=== PATIENT | female | born 1955 | race Caucasian/White ===

== ENCOUNTER → 2017-05-11 | Outpatient (CLI) | payer OTHER ==
[~2017-05-11] MED LIST: ALPR0.5T PO; CITA20TA9 PO; IBUP600T44 PO
[2017-05-11 10:27] LABS: BASO % 0.3 %; BASO ABS # 0.03 K/uL (0-0.2); COMPLETE YES; EOS % 1.7 %; HEMATOCRIT 49.1 % (37-47); IG% 0.3 %; LYMPH ABS # 1.97 K/uL (1.2-3.4); MEAN CELL VOLUME 89.1 fL (80-100); MEAN CORPUSCULAR HEMOGLOBIN 29.9 pg (25-34); MEAN CORPUSCULAR HGB CONC 33.6 g/dl (32-36); MEAN PLATELET VOLUME 10.3 fL (7.4-10.4); MONO % 6.3 %; NEUT % 72.4 %; PLATELET COUNT 282 K/uL (130-400); RED BLOOD COUNT 5.51 M/uL (4.2-5.4); WHITE BLOOD COUNT 10.38 K/uL (4.8-10.8)
[2017-05-11 10:41] LABS: ALT/SGPT 21 U/L (12-78); AST/SGOT 11 U/L (15-37); BLOOD UREA NITROGEN 18 mg/dl (7-18); BUN/CREATININE RATIO 21.6 (10-20); CALCIUM 8.6 mg/dl (8.5-10.1); CARBON DIOXIDE 29 mmol/L (21-32); CHLORIDE 105 mmol/L (98-107); CHOLESTEROL 213 mg/dl (0-200); CREATININE 0.82 mg/dl (0.60-1.20); GLUCOSE 115 mg/dl (70-99); POTASSIUM 3.9 mmol/L (3.5-5.1); SODIUM 139 mmol/L (136-145); TRIGLYCERIDES 108 mg/dl (0-150); VERY LOW DENSITY LIPOPROT CALC 22 mg/dl
[2017-05-11 10:51] LABS: ALB/GLOB RATIO 1.1 (0.9-2); ALKALINE PHOSPHATASE 89 U/L (45-117); CHOLESTEROL/HDL RATIO 4.3; HDL CHOLESTEROL 50 mg/dl; LDL CHOLESTEROL CALCULATED 141 mg/dl; THYROID STIMULATING HORMONE 0.869 uIu/ml (0.300-4.500)
[2017-05-11 11:30] LABS: ESTIMATED AVERAGE GLUCOSE 134 mg/dl; HA1C FLAG Normal (Normal)
== END | disposition home or self-care (01) ==
LOC: C.LAB1850 09:02
PROVIDERS: ATTEND Nurse Practitioner Adult Health
DX: Z00.00 Encounter for general adult medical examination without abnormal findings (principal); Z13.1 Encounter for screening for diabetes mellitus; E78.00 Pure hypercholesterolemia, unspecified

== ENCOUNTER → 2017-06-26 | Outpatient (CLI) | payer OTHER ==
--- NOTE | 2017-06-26 12:49 | DIAGNOSTIC IMAGING REPORT ---
CT LUNG SCREENING, LOW DOSE WITH COMPUTER-AIDED DETECTION (CAD) CLINICAL HISTORY: Smoking history. Lung cancer screening. COMPARISON STUDY: Chest CT dated 08/07/2012. CT DOSE: 74.81 mGycm TECHNIQUE: Low-dose helical CT was acquired without intravenous contrast from lung apices to bases and reconstructed at 2.5 mm every 2 mm. CAD was utilized for this study. A dose lowering technique was utilized adhering to the principles of ALARA. FINDINGS: Thyroid: Imaged portions of the thyroid gland are normal in appearance. Thoracic aorta: There is mild atherosclerotic calcification of the thoracic aorta, which is normal in caliber and demonstrates standard 3 vessel arch anatomy. Heart: The heart is enlarged and without pericardial effusion. There are coronary artery calcifications. Lungs and pleural spaces: Mild emphysematous change is identified. There are numerous calcified granulomas. No airspace consolidation is seen typical for pneumonia and there is no pleural effusion. Linear atelectasis versus scarring is present in the left lower lobe. The trachea and central airways are clear. Mediastinum: There is no mediastinal lymphadenopathy. [place]: Not well assessed without IV contrast. Axilla: Clear. Upper abdomen: There is a small hiatal hernia. Partially visualized upper abdominal viscera is otherwise grossly within normal limits but not well assessed. Skeletal structures: The skeletal structures are osteopenic. There are no lytic or blastic osseous lesions. IMPRESSION: 1. Cardiomegaly and mild emphysema. 2. No airspace consolidation or pleural effusion is identified. 3. No concerning pulmonary lesion is seen. CAD FINDINGS: Overall Lung RADS Category: 1 Lung RADS Management Recommendation: Lung-RADS 1: Continue annual screening in 12 months. Lung RADS Follow Up Date: 2018-06-26 Lung RADS Nodule ID: Electronically signed by: Emeterio Rosen M.D. 06/26/2017 12:48 PM Dictated Date/Time: 06/26/2017 12:40 PM
== END | disposition home or self-care (01) ==
LOC: C.CTS 12:20
PROVIDERS: ATTEND Nurse Practitioner Adult Health
DX: Z87.891 Personal history of nicotine dependence (principal); I51.7 Cardiomegaly

== ENCOUNTER → 2017-09-12 | Outpatient (CLI) | payer OTHER ==
[2017-09-12 17:38] LABS: ALT/SGPT 24 U/L (12-78); AST/SGOT 15 U/L (15-37)
== END | disposition home or self-care (01) ==
LOC: C.LAB1850 16:18
PROVIDERS: ATTEND Nurse Practitioner Adult Health
DX: E78.5 Hyperlipidemia, unspecified (principal)

== ENCOUNTER → 2018-01-15 | Day surgery (SDC) | payer OTHER ==
[2018-01-08 09:23] VITALS: BMI 47.0
[~2018-01-15] VITALS: Ht 154.9 cm; Wt 122.7 kg
[~2018-01-15] MED LIST changes: +ATOR-22 PO; +GLC/500 PO; -IBUP600T44 PO; +LIDOCAINE HCL 2% 2 ML VIAL (20MG/ML) ONE; +PROPOFOL IV EMULSION 10 MG/ML 20 ML VIAL IV ONE; +SODIUM CHLORIDE 0.9% 500ML 500 ML IV ONE; +[UNRECOGNIZED DRUG - OTHER] PO; +[UNRECOGNIZED DRUG - OTHER] PO
[2018-01-15 10:32] VITALS: Ht 154.9 cm; Wt 122.7 kg
--- NOTE | 2018-01-15 11:35 | Endo History and Physical ---
History & Physical Date of Service: Jan 15, 2018. Chief Complaint: SCREENING Referring Physician: DR. HURTADO History of Present Illness 62 yo CF who presents for screening colonoscopy. Past Surgical History Hx Cardiac Surgery: No Hx Internal Defibrillator: No Hx Pacemaker: No Hx Abdominal Surgery: Yes (JESSICA BSO) Hx of Implantable Prosthesis: No Hx Post-Op Nausea and Vomiting: Yes Hx Cancer Surgery: No Hx Thoracic Surgery: Yes (BREAST REDUCTION) Hx Orthopedic: No Hx Urinary Tract Surgery: No Family History Esophogeal [place] Social History Smoking Status: Former Smoker Hx Substance Use: No Hx Alcohol Use: Yes (RARELY) Allergies Coded Allergies: Sulfites (Unverified Allergy, Unknown, SULFITES FROM ALCHOLOL>ITCHING/RED/ FLUSHED IN FACE, 01/15/18) Uncoded Allergies: CAT/DOG DANDER (Allergy, Unknown, ITCHING EYES, 01/08/18) Current Medications Reported Home Medications Medications Dose Route/Sig Max Daily Dose Days Date Category Dose Instructions [Advance Proprietary] 1 Dose PO QAM 01/08/18 Reported [[place] Cleanse] 1 Dose PO DIRECTED 01/08/[address] BARNES (DIETARY SUPPLEMENT) Glucophage (Metformin Hcl) 500 Mg Tab 500 Mg PO HS 01/08/18 Reported Lipitor (Atorvastatin Calcium) 20 Mg Tab 20 Mg PO QAM 01/08/18 Reported Celexa (Citalopram Hydrobromide) 20 Mg Tab 20 Mg PO QAM 01/08/18 Reported Xanax (Alprazolam) 0.5 Mg Tab 0.5 Mg PO DAILY PRN 02/17/12 Reported Vital Signs Weight (Kilograms): 122.73 Height (Feet): 5 Height (Inches): 1 Date Time Temp Pulse Resp B/P (MAP) Pulse Ox O2 Delivery O2 Flow Rate FiO2 01/15/18 10:44 36.8 86 20 134/96 (109) 95 Room Air Physical Exam General Appearance: WD/WN, no apparent distress Respiratory/Chest: Auscultation: breath sounds normal Cardiovascular: Heart Auscultation: RRR Abdomen: Bowel Sounds: normal Inspection & Palpation: soft, non-distended, no tenderness, guarding & rebound Assessment and Plan Assessment: 62 yo CF who presents for screening colonoscopy. Plan: Proceed with colonoscopy.
--- NOTE | 2018-01-15 12:09 | GI REPORT ---
Procedure Date: 01/15/2018 11:40 AM Procedure: Colonoscopy Indications: Screening for colorectal malignant neoplasm Medicines: Monitored Anesthesia Care Complications: No immediate complications. Estimated Blood Loss: Estimated blood loss: none. Procedure: Pre-Anesthesia Assessment: - Prior to the procedure, a History and Physical was performed, and patient medications and allergies were reviewed. The patient's tolerance of previous anesthesia was also reviewed. The risks and benefits of the procedure and the sedation options and risks were discussed with the patient. All questions were answered, and informed consent was obtained. Prior Anticoagulants: The patient has taken no previous anticoagulant or antiplatelet agents. ASA Grade Assessment: II - A patient with mild systemic disease. After reviewing the risks and benefits, the patient was deemed in satisfactory condition to undergo the procedure. After I obtained informed consent, the scope was passed under direct vision. Throughout the procedure, the patient's blood pressure, pulse, and oxygen saturations were monitored continuously. The scope was introduced through the anus and advanced to the cecum, identified by appendiceal orifice and ileocecal valve. The colonoscopy was performed without difficulty. The patient tolerated the procedure well. The quality of the bowel preparation was good. The ileocecal valve, appendiceal orifice, and rectum were photographed. Findings: The perianal and digital rectal examinations were normal. Two pedunculated and sessile polyps were found in the sigmoid colon (pedunculated) and hepatic flexure (sessile). The polyps were 5 to 13 mm in size. These polyps were removed with a hot snare. Resection and retrieval were complete. Multiple small-mouthed diverticula were found in the sigmoid colon. Non-bleeding internal hemorrhoids were found during retroflexion. The hemorrhoids were small. Impression: - Two 5 to 13 mm polyps in the sigmoid colon and at the hepatic flexure, removed with a hot snare. Resected and retrieved. - Diverticulosis in the sigmoid colon. - Non-bleeding internal hemorrhoids. Recommendation: - Resume previous diet. - Continue present medications. - Repeat colonoscopy for surveillance based on pathology results. - Return to primary care physician as previously scheduled. Allen Wright DO 01/15/2018 12:09:34 PM This report has been signed electronically. Note Initiated On: 01/15/2018 11:40 AM I attest to the content of the Intraoperative Record and orders documented therein, exceptions below
--- NOTE | 2018-01-15 12:10 | Discharge Instructions ---
Endoscopy Patient Instructions Date / Procedure(s) Performed Jan 15, 2018. Colonoscopy Allergy Information Coded Allergies: Sulfites (Unverified Allergy, Unknown, SULFITES FROM ALCHOLOL>ITCHING/RED/ FLUSHED IN FACE, 01/15/18) Uncoded Allergies: CAT/DOG DANDER (Allergy, Unknown, ITCHING EYES, 01/08/18) Discharge Date / Findings Jan 15, 2018. Colon polyps Diverticulosis Internal hemorrhoids Medication Instructions OK to resume all medications today as prescribed Reported Home Medications Medications Dose Route/Sig Max Daily Dose Days Date Category Dose Instructions [Advance Proprietary] 1 Dose PO QAM 01/08/18 Reported [[place] Cleanse] 1 Dose PO DIRECTED 01/08/[address] BARNES (DIETARY SUPPLEMENT) Glucophage (Metformin Hcl) 500 Mg Tab 500 Mg PO HS 01/08/18 Reported Lipitor (Atorvastatin Calcium) 20 Mg Tab 20 Mg PO QAM 01/08/18 Reported Celexa (Citalopram Hydrobromide) 20 Mg Tab 20 Mg PO QAM 01/08/18 Reported Xanax (Alprazolam) 0.5 Mg Tab 0.5 Mg PO DAILY PRN 02/17/12 Reported Provider Instructions Activity Restrictions - No exercising or heavy lifting for 24 hours. - Do not drink alcohol the day of the procedure. - Do not drive a car or operate machinery until the day after the procedure. - Do not make any important decisions or sign important papers in 24 hours after the procedure. Following Day: - Return to full activity which may include returning to work/school. Diet Start your diet with liquids and light foods (jello, soup, juice, toast). Then eat your usual diet if not nauseated. Treatment For Common After Affects For mild abdominal pain, bloating, or excessive gas: - Rest - Eat lightly - Lie on right side Follow-Up Information Follow-up with DR. HURTADO as scheduled Anesthesia Information What You Should Know You have had a procedure that required some medicine to reduce anxiety and discomfort. This treatment is called moderate sedation. After receiving the treatment, you may be sleepy, but you will be able to breathe on your own. The effects of the treatment may last for several hours. Follow these instructions along with Activity/Diet recommendations noted above: * Do NOT do anything where dizziness or clumsiness would be dangerous. * Rest quietly at home today, then you can be up and about tomorrow. * Have a responsible person stay with you the rest of today. * You may have had an I.V. today. If so, you may take the dressing off later today. Recommendations Call your doctor if: * Trouble breathing * Continuous vomiting for more than 24 hours * Temperature above 101 degrees * Severe abdominal pain or bloating * Pain not relieved by pain medicine ordered * There is increased drainage or redness from any incision * A large amount of rectal bleeding greater than 2-3 tablespoons. (If you had a polyp/s removed or have hemorrhoids, a small amount of blood - from the rectum is to be expected.) * You have any unanswered questions or concerns. IN THE EVENT OF A SERIOUS EMERGENCY, GO TO THE NEAREST EMERGENCY ROOM Your discharge instructions were prepared by provider Allen Wright. Patient Instructions Signature Page [place] Patient (or Guardian) Signature/Date: I have read and understand the instructions given to me by my caregivers. Caregiver/RN/Doctor Signature/Date: The above-named patient and/or guardian has received patient instructions on this date. + Original Patient Signature Page (only) stays with chart. Please make copy for patient.
[2018-01-15 12:21] LABS: BASO % 0.4 %; BASO ABS # 0.04 K/uL (0-0.2); HEMATOCRIT 50.2 % (37-47); HEMOGLOBIN 16.6 g/dL (12.0-16.0); IG# 0.01 K/uL (0.00-0.02); LYMPH % 14.7 %; LYMPH ABS # 1.46 K/uL (1.2-3.4); MEAN CELL VOLUME 91.4 fL (80-100); MEAN CORPUSCULAR HEMOGLOBIN 30.2 pg (25-34); MEAN CORPUSCULAR HGB CONC 33.1 g/dl (32-36); MEAN PLATELET VOLUME 10.5 fL (7.4-10.4); MONO % 6.5 %; MONO ABS # 0.65 K/uL (0.11-0.59); NEUT % 76.3 %; NEUT ABS # 7.57 K/uL (1.4-6.5); PLATELET COUNT 329 K/uL (130-400); RED CELL DISTRIBUTION WIDTH CV 14.1 % (11.5-14.5); RED CELL DISTRIBUTION WIDTH SD 47.8 fL (36.4-46.3); WHITE BLOOD COUNT 9.93 K/uL (4.8-10.8)
[2018-01-15 12:37] VITALS: BP 136/91; PULSE 84; O2SAT 95
[2018-01-15 12:37] LABS: ALBUMIN 4.3 gm/dl (3.4-5.0); CALCIUM 9.3 mg/dl (8.5-10.1); CREATININE 1.02 mg/dl (0.60-1.20); POTASSIUM 4.2 mmol/L (3.5-5.1)
[2018-01-15 12:40] LABS: TOTAL PROTEIN 8.3 gm/dl (6.4-8.2)
--- NOTE | 2018-01-15 12:42 | Anesthesiology Progress Note ---
Anesthesia Post Op Note Date & Time Jan 15, 2018 at 12:42 Vital Signs Pain Intensity: 0 Vital Signs Past 12 Hours Date Time Temp Pulse Resp B/P (MAP) Pulse Ox O2 Delivery O2 Flow Rate FiO2 01/15/18 12:37 84 18 136/91 (106) 95 Room Air 01/15/18 12:22 85 18 127/92 (104) 95 Room Air 01/15/18 12:07 96 16 117/83 (94) 96 Room Air 01/15/18 10:44 36.8 86 20 134/96 (109) 95 Room Air Notes Mental Status: alert / awake / arousable, participated in evaluation Pt Amnestic to Procedure: Yes Nausea / Vomiting: adequately controlled Pain: adequately controlled Airway Patency, RR, SpO2: stable & adequate BP & HR: stable & adequate Hydration State: stable & adequate Anesthetic Complications: no major complications apparent
[2018-01-15 13:02] LABS: HEMOGLOBIN A1C 6.2 % (4.5-5.6)
== END | disposition home or self-care (01) ==
LOC: C.GI 09:53
PROVIDERS: ATTEND Internal Medicine
DX: Z12.11 Encounter for screening for malignant neoplasm of colon (principal); D12.5 Benign neoplasm of sigmoid colon; D12.3 Benign neoplasm of transverse colon; R73.03 Prediabetes; E66.9 Obesity, unspecified; Z68.43 Body mass index [BMI] 50.0-59.9, adult; Z88.5 Allergy status to narcotic agent; Z90.710 Acquired absence of both cervix and uterus; Z90.722 Acquired absence of ovaries, bilateral; Z90.79 Acquired absence of other genital organ(s); Z87.891 Personal history of nicotine dependence; Z80.0 Family history of malignant neoplasm of digestive organs